=== PATIENT | female | born 1990 | race Caucasian/White ===

== ENCOUNTER 2023-12-31 13:31 | Emergency (ER) | payer BC, SELFPAY ==
--- OUTSIDE RECORDS SUMMARY | 2023-12-31 13:33 | XMS REPORT | Continuity of Care Document ---
Author Name Unknown Address [address] [place] [address] [facility] thconnect Address [address] [place] [address] Care Team Providers Care Laborer Tanbark Name Role Phone Alan Winters MD Primary Care Physician Genaro CHAVIS, Suzi Tan Attending Clinician Unavailab le Doctor Unassigned, Holiday Attending Clinician U navailable Only, Ang Db Test Attending Clinician Unavailabl Pietro Fabian Attending Clinician PIETRO RAMIREZ Attending Clinician Unavailable Payers Payer Name Policy Type Policy Number Effective Date Expirati on Date Source Allergies, Adverse Reactions, Alerts Allergy Name Allergy Type Status Severity Reaction(s) Onset Date Inactive Date Treating Clinician Comments Source NO KNOWN ALLERGIE S Drug Class Active [facility] Social History Social Habit Start Date Stop Date Quantity Comments Source Sexual orientation U [facility] Sex Assigned At 1990 00:00:00 1990 00:00:00 [facility] Smoking Status Start Date Stop Date Source Tobacco smoking consumption unknown [facility] Medications Ordered Medication Name Filled Medication Name Start Date Stop Date Current Medication? Ordering Clinician Indication Dosage Frequency Signature (SIG) Comments Components Source sulfamethox azole-trime thoprim (BACTRIM SS) 400-80 mg per tablet 06-19 00:00: 00 Yes 1{tbl} Take 1 tablet by mouth 2 (two) times daily. [facility] Encounters Start Date/Time End Date/Time Encounter Type Admission Type Attending Clinicians Care Facility Care Department Encounter ID Source 2021-06-08 00:00:00 2021-06-08 00:00:00 Letter (Out) Suzi Lam [facility] [id number] [facility] 2021-06-08 00:00:00 2021-06-08 00:00:00 Patient Secure Msg Doctor Unassigned, Holiday [facility] [id number] [facility] 2021-06-07 11:32:51 2021-06-07 11:47:51 Laboratory Only Only, Ang Db Test Pietro Ramirez [facility] [id number] [facility] 2021-06-07 11:15:00 2021-06-07 11:15:00 Outpatient [facility] [id number] [facility] 2021-06-07 11:15:00 2021-06-07 11:15:00 Outpatient R PIETRO RAMIREZ [facility] [id number] [facility]
--- NOTE | 2023-12-31 15:49 | EDPHYS ---
Physician Documentation [facility] Name: Destinee Walsh Age: 33 yrs Sex: Female : 1990 Arrival Date: 12/31/2023 Time: 13:31 Bed Treatment Private MD: KENJI Physician Luis Travis HPI: 12/30 15:43 This 33 yrs old Female presents to ER via Ambulatory with complaints of marcelina Toothache. 15:43 The patient presents with broken tooth/teeth, pain, swelling. The problem is located in marcelina the left jaw. Onset: The symptoms/episode began/occurred 3 day(s) ago. Duration: The symptoms are continuous, and are steadily getting worse. Modifying factors: The symptoms are alleviated by nothing, the symptoms are aggravated by chewing, food. Associated signs and symptoms: The patient has no apparent associated signs or symptoms. Severity of symptoms: At their worst the symptoms were mild, moderate, in the emergency department the symptoms are unchanged. The patient has not experienced similar symptoms in the past. LEGAL JOB TITLES: 16:05 LMP N/A - control method, Not tl4 Historical: - Allergies: 13:54 PENICILLINS; nj1 - PMHx: 13:54 Hypertensive disorder; nj1 - PSHx: 13:54 None; nj1 - Immunization history:: Client reports receiving the 2nd dose of the Covid vaccine. - Infectious Disease History:: Denies. - Social history:: Smoking status: Patient denies any tobacco usage or history of. ROS: 15:44 Constitutional: Negative for fever, chills, and weight loss, Eyes: Negative for injury, marcelina pain, redness, and discharge, Neck: Negative for injury, pain, and swelling, Cardiovascular: Negative for chest pain, palpitations, and edema, Respiratory: Negative for shortness of breath, cough, wheezing, and pleuritic chest pain, Abdomen/GI: Negative for abdominal pain, nausea, vomiting, diarrhea, and constipation, Back: Negative for injury and pain, : Negative for injury, bleeding, discharge, and swelling, MS/Extremity: Negative for injury and deformity, Skin: Negative for injury, rash, and discoloration, Neuro: Negative for headache, weakness, numbness, tingling, and seizure, Psych: Negative for depression, anxiety, suicide ideation, homicidal ideation, and hallucinations, Allergy/Immunology: Negative for hives, rash, and allergies, Endocrine: Negative for neck swelling, polydipsia, polyuria, polyphagia, and marked weight changes, Hematologic/Lymphatic: Negative for swollen nodes, abnormal bleeding, and unusual bruising, 15:44 ENT: Positive for Teeth pain Exam: 15:44 Constitutional: This is a well developed, well nourished patient who is awake, alert, marcelina and in no acute distress. Head/Face: Normocephalic, atraumatic. Eyes: Pupils equal round and reactive to light, extra-ocular motions intact. Lids and lashes normal. Conjunctiva and sclera are non-icteric and not injected. Cornea within normal limits. Periorbital areas with no swelling, redness, or edema. ENT: Nares patent. No nasal discharge, no septal abnormalities noted. Tympanic membranes are normal and external auditory canals are clear. Oropharynx with no redness, swelling, or masses, exudates, or evidence of obstruction, uvula midline. Mucous membranes moist. Neck: Trachea midline, no thyromegaly or masses palpated, and no cervical lymphadenopathy. Supple, full range of motion without nuchal rigidity, or vertebral point tenderness. No Meningismus. Chest/axilla: Normal chest wall appearance and motion. Nontender with no deformity. No lesions are appreciated. Cardiovascular: Regular rate and rhythm with a normal S1 and S2. No gallops, murmurs, or rubs. Normal PMI, no JVD. No pulse deficits. Respiratory: Lungs have equal breath sounds bilaterally, clear to auscultation and percussion. No rales, rhonchi or wheezes noted. No increased work of breathing, no retractions or nasal flaring. Abdomen/GI: Soft, non-tender, with normal bowel sounds. No distension or tympany. No guarding or rebound. No evidence of tenderness throughout. Back: No spinal tenderness. No costovertebral tenderness. Full range of motion. Skin: Warm, dry with normal turgor. Normal color with no rashes, no lesions, and no evidence of cellulitis. MS/ Extremity: Pulses equal, no cyanosis. Neurovascular intact. Full, normal range of motion. Neuro: Awake and alert, GCS 15, oriented to person, place, time, and situation. Cranial nerves II-XII grossly intact. Motor strength 5/5 in all extremities. Sensory grossly intact. Cerebellar exam normal. Normal gait. Psych: Awake, alert, with orientation to person, place and time. Behavior, mood, and affect are within normal limits. Vital Signs: 13:51 BP 146 / 96; Pulse 76; Resp 16; Temp 98(TE); Pulse Ox 100% ; Weight 76.66 kg; Height 5 nj1 ft. 6 in. ; Pain 0/10; 16:04 BP 132 / 88; Pulse 70; Resp 18; Temp 98.7(O); Pulse Ox 98% on R/A; Pain 8/10; tl4 13:51 Body Mass Index 27.28 (76.66 kg, 167.64 cm) nj1 13:51 Pain Scale: Adult nj1 16:04 Pain Scale: Adult tl4 MDM: 13:42 Patient medically screened. marcelina 15:44 Differential diagnosis: dental caries, gingivitis. Data reviewed: vital signs, nurses marcelina notes. Consideration of Admission/Observation Escalation of care including admission/observation considered. I considered the following discharge prescriptions or medication management in the emergency department Medications were administered in the Emergency Department. See MAR. Test considered but Not performed: Labs: no labs. Historians other than the Patient: pt well informed. Care significantly affected by the following chronic conditions: Hypertension. Counseling: I had a detailed discussion with the patient and/or guardian regarding the historical points, exam findings, and any diagnostic results supporting the discharge/admit diagnosis, lab results, the need for outpatient follow up, for definitive care, a dentist, a family practitioner, an oral maxilofacial specialist. Administered Medications: 16:04 Drug: Ibuprofen PO 600 mg PO once Route: PO; tl4 16:06 Follow up: Response: No adverse reaction; Medication administered at discharge. tl4 16:04 Drug: Clindamycin PO 300 mg PO once Route: PO; tl4 16:05 Follow up: Response: No adverse reaction; Medication administered at discharge. tl4 Disposition Summary: 12/31/23 15:48 Discharge Ordered Notes: Location: Home marcelina Problem: new marcelina Symptoms: have improved marcelina Condition: Stable marcelina Diagnosis - Dental root caries marcelina - Dental caries, unspecified marcelina - Unspecified symptoms and signs involving the musculoskeletal system marcelina Followup: marcelina - With: Private Physician - When: 2 - 3 days - Reason: Recheck today's complaints, Continuance of care, Re-evaluation by your physician Followup: [facility] - With: Jose Ghotra DDS - When: 2 - 3 days - Reason: Recheck today's complaints, Re-evaluation by your physician Discharge Instructions: - Discharge Summary Sheet [facility] - Dental Caries, Adult marcelina - Dental Pain marcelina - Dental Pain, [id number] marcelina - Diet and Dental Disease marcelina - Dental Caries, Adult, [id number] [facility] Forms: - Medication Reconciliation Form [facility] - Thank You Letter marcel[place] - Antibiotic Education [facility] - Prescription Opioid Use [facility] - Patient Portal Instructions [facility] - Leadership Thank You Letter [facility] Prescriptions: - Clindamycin HCl 300 mg Oral capsule - take 1 capsule ORAL route every 6 hours for 7 days; 28 capsule; Refills: 0, [facility] Product Selection Permitted - Ibuprofen 600 mg Oral Tablet - take 1 tablet ORAL route every 6 hours As needed take with food; 30 tablet; [facility] Refills: 0, Product Selection Permitted Signatures: Luis Travis MD MD cha Jaco, Norma RN RN nj1 Giorgi Stevenson RN RN tl4
--- NOTE | 2023-12-31 15:49 | ER ---
Nurse's Notes [facility] Name: Destinee Walsh Age: 33 yrs Sex: Female : 1990 Arrival Date: 12/31/2023 Time: 13:31 Bed Treatment Private MD: Diagnosis: Dental root caries;Dental caries, unspecified;Unspecified symptoms and signs involving the musculoskeletal system Presentation: 12/30 13:51 Chief complaint: Patient states: Left lower toothache, broke tooth about 6 months ago, nj1 noticed some swelling , only hurts when touching it. Coronavirus screen: Vaccine status: Patient reports receiving the 2nd dose of the covid vaccine. Ebola Screen: Patient denies travel to an Ebola-affected area in the 21 days before illness onset. Initial Sepsis Screen: Does the patient meet any 2 criteria? No. Patient's initial sepsis screen is negative. Does the patient have a suspected source of infection? No. Patient's initial sepsis screen is negative. Risk Assessment: Do you want to hurt yourself or someone else? Patient reports no desire to harm self or others. Onset of symptoms was December 29, 2023. 13:51 Method Of Arrival: Ambulatory [facility] 13:51 Acuity: MANNY 4 nj1 CONSULTANT RN: 16:05 LMP N/A - control method, Not tl4 Historical: - Allergies: 13:54 PENICILLINS; nj1 - PMHx: 13:54 Hypertensive disorder; nj1 - PSHx: 13:54 None; nj1 - Immunization history:: Client reports receiving the 2nd dose of the Covid vaccine. - Infectious Disease History:: Denies. - Social history:: Smoking status: Patient denies any tobacco usage or history of. Screenin:08 [facility] ED Fall Risk Assessment (Adult) History of falling in the last 3 months, tl4 including since admission No falls in past 3 months (0 pts) Confusion or Disorientation No (0 pts) Intoxicated or Sedated No (0 pts) Impaired Gait No (0 pts) Mobility Assist Device Used No (0 pt) Altered Elimination No (0 pt) Score/Fall Risk Level 0 - 2 = Low Risk Oriented to surroundings, Maintained a safe environment, Educated pt \T\ family on fall prevention, incl call for assistance when getting out of bed, Assessed \T\ reinforced patient's understanding of fall precautions, Hourly rounding (assess needs \T\ fall precautionary measures) done, Used ambulatory aids as needed (educated on \T\ assisted with), Used gait belt as appropriate. Abuse screen: Denies threats or abuse. Denies injuries from another. Nutritional screening: No deficits noted. Tuberculosis screening: No symptoms or risk factors identified. Assessment: 14:06 General: Appears uncomfortable, Behavior is calm, cooperative. Pain: Complains of pain tl4 in face. Neuro: Level of Consciousness is awake, alert, obeys commands, Oriented to person, place, time, situation, Moves all extremities. Gait is steady, Speech is normal. Cardiovascular: Capillary refill < 3 seconds Patient's skin is warm and dry. Respiratory: Airway is patent Respiratory effort is even, unlabored, Respiratory pattern is regular, symmetrical, Breath sounds are clear bilaterally. GI: No deficits noted. No signs and/or symptoms were reported involving the gastrointestinal system. : No deficits noted. No signs and/or symptoms were reported regarding the genitourinary system. EENT: Reports pain in right jaw. Derm: No deficits noted. No signs and/or symptoms reported regarding the dermatologic system. Musculoskeletal: No deficits noted. No signs and/or symptoms reported regarding the musculoskeletal system. 16:04 Reassessment: No changes from previously documented assessment. Patient and/or family tl4 updated on plan of care and expected duration. Pain level reassessed. Patient is alert, oriented x 3, equal unlabored respirations, skin warm/dry/pink. Vital Signs: 13:51 BP 146 / 96; Pulse 76; Resp 16; Temp 98(TE); Pulse Ox 100% ; Weight 76.66 kg; Height 5 nj1 ft. 6 in. ; Pain 0/10; 16:04 BP 132 / 88; Pulse 70; Resp 18; Temp 98.7(O); Pulse Ox 98% on R/A; Pain 8/10; tl4 13:51 Body Mass Index 27.28 (76.66 kg, 167.64 cm) nj1 13:51 Pain Scale: Adult nj1 16:04 Pain Scale: Adult tl4 ED Course: 13:33 Patient arrived in ED. ra3 13:42 Luis Travis MD is Attending Physician. marcelina 13:54 Triage completed. nj1 13:55 Arm band placed on right wrist. nj1 14:06 Giorgi Stevenson, RN is Primary Nurse. tl4 14:08 Patient has correct armband on for positive identification. Bed in low position. Call tl4 light in reach. Side rails up X 1. Provided Education on: ED process. Door closed. Noise minimized. Lights dimmed. Moved to private room. 14:09 No provider procedures requiring assistance completed. Patient did not have IV access tl4 during this emergency room visit. 15:47 Jose Ghotra DDS is Referral Physician. [facility] Administered Medications: 16:04 Drug: Ibuprofen PO 600 mg PO once Route: PO; tl4 16:06 Follow up: Response: No adverse reaction; Medication administered at discharge. tl4 16:04 Drug: Clindamycin PO 300 mg PO once Route: PO; tl4 16:05 Follow up: Response: No adverse reaction; Medication administered at discharge. tl4 Medication: 14:08 VIS not applicable for this client. tl4 Outcome: 15:48 Discharge ordered by . [facility] 16:04 Discharged to home ambulatory, tl4 16:04 Condition: stable 16:04 Discharge instructions given to patient, Instructed on discharge instructions, follow up and referral plans. medication usage, Demonstrated understanding of instructions, follow-up care, medications, Prescriptions given X 2, 16:05 Patient left the ED. tl4 Signatures: Luis Travis MD MD cha Jaco, Norma, RN RN nj1 Giorgi Stevenson, PALMIRA RN tl4 Kianna Barrett ra3 Corrections: (The following items were deleted from the chart) 13:55 13:51 Pulse 76bpm; Resp 16bpm; Pulse Ox 100%; Temp 98F Temporal; 76.66 kg; Height 5 ft. nj1 6 in.; BMI: 27.2; Pain 0/10, Adult; nj1
[2023-12-31] MEDS ORDERED: IBUPROFEN 400 MG TAB ONE (15:57)
[2023-12-31] MEDS ORDERED: IBUPROFEN 200 MG TAB PO ONE (15:57)
[2023-12-31 20:16] VITALS: BP 146/96; TEMP 98; O2SAT 100
== END 2023-12-31 16:05 | disposition home or self-care (01) ==
LOC: ER 13:31
DX: K02.9 Dental caries, unspecified (principal); K02.7 Dental root caries; R29.91 Unspecified symptoms and signs involving the musculoskeletal system
CPT/HCPCS: 99283